=== PATIENT | male | born 1995 | race Caucasian/White ===

== ENCOUNTER 2023-12-16 11:20 | Emergency (ER) | payer BC, SELFPAY ==
--- NOTE | ~2023-12-16 | CT_ITS ---
EXAMINATION: CT lumbar spine wo con DATE: 12/16/2023 12:35 INDICATION: Low back pain. TECHNIQUE: Computed tomography (CT) of the lumbar spine was performed without intravenous contrast. A utomated exposure control and iterative reconstruction technique were employed. The dose-length produ ct was 332.27 mGy-cm. COMPARISON: None FINDINGS: There is 4 degrees dextrocurvature of lumbar spine. Vertebral body heights are normal. Inte rvertebral disc heights are normal. The following disc levels are specifically discussed: L1-L2: The disc does not extend beyond the endplate margin. There is mild bilateral facet joint osteo arthritis. There is no neural foraminal stenosis. There is no central canal stenosis. L2-L3: The disc is bulging. There is no facet joint osteoarthritis. There is no neural foraminal sten osis. There is mild central canal stenosis. L3-L4: The disc is bulging. There is mild bilateral facet joint osteoarthritis. There is mild bilater al neural foraminal stenosis. There is mild central canal stenosis. L4-L5: The disc is bulging. There is mild bilateral facet joint osteoarthritis. There is moderate gerson ateral neural foraminal stenosis. There is mild central canal stenosis. L5-S1: The disc is bulging with superimposed central extrusion. There is mild bilateral facet joint o steoarthritis. There is moderate right and mild left neural foraminal stenosis. There is moderate to severe central canal stenosis. IMPRESSION: 1. Moderate lower lumbar spondylosis. Reviewed, dictated and finalized at location E.
[2023-12-16 11:26] VITALS: BP 142/89; PULSE 88; RESP 14; TEMP 36.7; O2SAT 100
--- NOTE | 2023-12-16 12:10 | ED.BACK ---
HPI - Back Pain/Injury General Chief Complaint: Back Pain/Injury Stated Complaint: lower back pain Time Seen by Provider: 12/16/23 11:46 History of Present Illness HPI Narrative: Patient is a 28-year-old male who presents to the emergency department this morning complaining of lower back pain. Patient states that he was coughing yesterday and went to go take a swing when he felt a pop in his lower back. Patient states that since then he has been having lower back pain which yesterday he took some ibuprofen for and states that it only mildly helped with the pain. He also tried to use some heating/icing packs with minimal relief. Patient denies any numbness and/or tingling along his bilateral lower extremity, he denies any bowel or bladder incontinence. Patient states that when he is not moving the pain is mild, however, the moment he starts to move he starts to have lower back pain. Patient describes the pain as an ache and states that it is more of discomfort rather than pain. He denies any recent illness, any fevers or chills, any abdominal pain or urinary symptoms of dysuria or hematuria. No additional symptoms or concerns at this time. Related Data Allergies Allergy/AdvReac Type Severity Reaction Status Date / Time No Known Allergies Allergy Unverified 09/16/17 19:56 Review of Systems Review of Systems: All systems are reviewed and are negative unless stated otherwise in the HPI. Exam Narrative: General: Alert, awake, afebrile, in no acute distress. HEENT: PERRL, no rhinorrhea, no post nasal drip, oropharynx clear. Cardiovascular: Regular rate and rhythm, no murmurs, rubs or gallops, no peripheral edema. Respiratory: Clear to auscultation bilaterally, no tachypnea, no wheezing, no rhonchi, no rubs, no respiratory distress. Abdomen: Soft, nontender, nondistended, no rebound, no guarding, no peritoneal signs. Musculoskeletal: No joint swelling or deformity, normal muscle tone, no midline tenderness to palpation over the cervical, thoracic and lumbar spine, tenderness to palpation over the lumbar paraspinal region. Positive straight leg rise test bilaterally. Skin: No rashes or petechia, no signs of infection. Neurological: Alert and oriented to person, place, and time. Follows all commands. No focal deficits, speech is clear and fluent. Course Vital Signs Vital signs: Vital Signs Temperature 98.0 F 12/16/23 11:26 Pulse Rate 88 12/16/23 11:26 Respiratory Rate 14 12/16/23 11:26 Blood Pressure 142/89 H 12/16/23 11:26 Pulse Oximetry 100 12/16/23 11:26 Oxygen Delivery Room Air 12/16/23 11:26 Temperature 98.0 F 12/16/23 11:26 Pulse Rate 88 12/16/23 11:26 Respiratory Rate 14 12/16/23 11:26 Blood Pressure 142/89 H 12/16/23 11:26 Pulse Oximetry 100 12/16/23 11:26 Oxygen Delivery Room Air 12/16/23 11:26 MDM - Back Pain/Injury MDM Narrative Medical decision making narrative: The patient was evaluated by myself in the emergency department. History is obtained from patient who is an independent historian and physical exam was performed. External medical records were reviewed at this time. Patient was administered oral [place] 5-325 mg. Imaging studies obtained included a CT lumbar spine without IV contrast which was independently interpreted by me revealing moderate lower lumbar spondylosis, which is pending final radiology interpretation. Patient was informed of this at bedside and provided with a copy of his CT report. I did inform the patient that the CT findings are likely not due to his golf injury yesterday as he does have multiple bulging discs. At this time, patient did inform me that he does constantly lift heavy objects for work. Differential diagnosis considerations include lumbar back strain, compression fracture, herniated disc. Comorbidities impacting this visit include none. I have evaluated and discussed social determinants of health with the patient that
[2023-12-16] MEDS: HYDROcodone/acetaminophen (*CRX) 5-325 MG TABLET 1 TAB PO (13:06)
== END 2023-12-16 13:14 | disposition home or self-care (01) ==
PROVIDERS: Emergency Provider Emergency Medicine
DX: S39.012A Strain of muscle, fascia and tendon of lower back, initial encounter (principal); M47.816 Spondylosis without myelopathy or radiculopathy, lumbar region; X50.0XXA Overexertion from strenuous movement or load, initial encounter
CPT/HCPCS: 72131; 99284; A9270